=== PATIENT | male | born 1990 | race Caucasian/White ===

== ENCOUNTER 2020-07-02 19:31 | Emergency (ER) | payer BC, SELFPAY ==
--- NOTE | 2020-07-02 19:30 | DI.RAD_ITS ---
EXAM: XR THUMB LT CLINICAL HISTORY: pain at mcp thumb joint after injury. TECHNIQUE: 2D digital imaging was performed. COMPARISON: None. FINDINGS: BONES: No acute fracture is present. No bony destructive lesion is seen. JOINTS: No dislocation present. SOFT TISSUE: Normal. IMPRESSION: No evidence of acute fracture, dislocation, or subluxation. DATA REPOSITORY: RADIATION DOSE DELIVERED:
[2020-07-02 19:38] VITALS: BP 130/78; PULSE 76; RESP 18; TEMP 36.3; O2SAT 98
--- NOTE | 2020-07-02 19:47 | W.ED.GENAD ---
Discharge Plan Disposition Patient Disposition: HOME Condition: Good Discharge Details Clinical Impression: Left thumb sprain Primary Care Provider: None,None ED Provider: Shawn Pace Discharge Instructions Instructions: Finger Sprain (ED) Additional Instructions: At this time your exam does not show evidence of ruptured tendons or ligaments. The x-ray is negative for any evidence of fracture. I suspect you have a notable sprain of the ligaments or in your thumb. Please use the cast/splint for the time being to give additional support over the next few weeks. If you notice any worsening of your symptoms, or any new symptoms such as vomiting, diarrhea, fever, chills, shortness of breath, chest pain, numbness, weakness, or fainting , please return immediately to the emergency department for reevaluation. Please follow up with your primary care provider as soon as possible for reassessment and reevaluation. As always, it was a pleasure participating in your medical care today. Medical Decision Making 30-year-old male with no significant past medical history who presents today for evaluation of left thumb pain. Patient was doing [employer] when the ground seem to give out under his left nondominant hand and his thumb was torqued away from the palmar aspect. He had immediate pain and came to the ER for further evaluation. He denies any numbness or tingling. No other trauma. No other complaints at this time. Pain is made worse with movement. Relieved by nothing. Physical exam demonstrates mild swelling around the thenar eminence, mild tenderness over the MCP joint of the thumb, however there does not appear to be any decrease in strength or ligamentous laxity at all on exam. Suspect strain of the thenar muscles without complete tear. With normal strength normal sensation normal range of motion, I do feel that he is appropriate for discharge. X-ray shows no evidence of acute fracture. Symptoms appearing consistent with skiers thumb/gamekeeper's thumb. Will give a thumb spica for support for the time being. Discussed red flags which return. I have extensively reviewed the treatment plan and discharge instructions with the patient. I have addressed all patient concerns at this time. The patient was made aware of what symptoms to monitor for that would warrant a return to the emergency department. Discussed the plan with the patient, they demonstrate verbal understanding and agreement with our assessment and plan at this time. The documentation in this chart was dictated using Dragon dictation software. Please excuse any dictation errors. FINDINGS: Bones/joints: No acute fracture or dislocation. Soft tissues: Normal. IMPRESSION: No acute fracture or dislocation. Thank you for allowing us to participate in the care of your patient. Dictated and Authenticated by: Ladi Strauss MD 07/02/2020 8:06 PM Eastern Time ([place] & [place]) HPI General Date/Time Provider Initiated Documentation: 07/02/20 19:33. HPI Narrative: 30-year-old male with no significant past medical history who presents today for evaluation of left thumb pain. Patient was doing [employer] when the ground seem to give out under his left nondominant hand and his thumb was torqued away from the palmar aspect. He had immediate pain and came to the ER for further evaluation. He denies any numbness or tingling. No other trauma. No other complaints at this time. Pain is made worse with movement. Relieved by nothing. Related Data Allergies Allergy/AdvReac Type Severity Reaction Status Date / Time cefaclor [From Ceclor] Allergy Unverified 07/02/20 19:45 General Stated Complaint: Orthopedic GONZÁLEZ: 4 Review of Systems All systems reviewed & are unremarkable except as noted in HPI and below [facility]LY [facility] Social History Smoking/Tobacco Use Status: Never Smoking risk assessment performed?: Yes Alcohol Intake: current Alcohol Intake frequency: 0-2 drinks per day Alcohol type: beer Drug use: Never Substance use type: does not use Do you feel safe at home: Yes Do you feel safe in your relationship?: Yes Exam Narrative Exam Narrative: 1.Const: Well-nourished, Well-developed, appearing stated age 2.Eyes: PERRL, no conjunctival injection, and symmetrical lids. 3.ENT: Atraumatic external nose and ears. Moist MM. Neck: Symmetric, trachea midline, No thyromegaly. 4.CVS: +S1/S2, No murmurs or gallops. Peripheral pulses 2+ and equal in all extremities. Brisk capillary refill in all extremities. 5.RESP: Unlabored respiratory effort. Clear to auscultation bilaterally. No wheezes rales or rhonchi 6.GI: Soft, Nontender/Nondistended, No hepatosplenomegaly. No guarding or rebound. 7.MSK: Left hand: Symmetrically palpable radial and ulnar pulses. Capillary refill less than 2 seconds to all digits. Intact sensation to light touch of the radial, median and ulnar nerves demonstrated by testing in the dorsal web space of the thumb, the distal palmar aspect of the index finger, and the lateral surface of the fifth finger. 2 point discrimination intact to 5mm (up to 6mm can be normal in digits 3-5) of discrimination in the affected digit. Intact motor function of the radial, median and ulnar nerves demonstrated by strength of extension of the isolated distal joint of the index finger, hand merchandising execution associate, and spreading of the 2nd through 5th digits. Intact recurrent median nerve as demonstrated by ability to move thumb fully through opposition, abduction and flexion. No snuffbox tenderness. Normal strength for all areas and directions of movement for the thumb. There does not appear to be any ligamentous laxity by the collateral ligaments, the base of the thumb/MCP joint. 8.Skin: Warm, Dry. No rashes or lesions. 9.Neuro: client service coordinator II-XII grossly intact. Sensation grossly intact, no focal neurologic deficits. 10.Psych: (AAO) x3. Appropriate mood and affect Course Vital Signs Vital signs: Vital Signs Temperature 36.3 C L 07/02/20 19:38 Pulse 76 07/02/20 19:38 Respiratory Rate 18 07/02/20 19:38 Blood Pressure 130/78 07/02/20 19:38 Pulse Oximetry 98 07/02/20 19:38 Temperature 36.3 C L 07/02/20 19:38 Temperature Source Temporal Artery Scan 07/02/20 19:38 Pulse 76 07/02/20 19:38 Respiratory Rate 18 07/02/20 19:38 Respiratory Effort Non-Labored 07/02/20 19:40 Blood Pressure 130/78 07/02/20 19:38 Pulse Oximetry 98 07/02/20 19:38 Oxygen Delivery Method Room Air 07/02/20 19:38 Oxygen Flow Rate 0 07/02/20 19:38 Pain Level 6 07/02/20 19:46
--- NOTE | 2020-07-02 20:06 | DI.VRAD_ITS ---
PROCEDURE INFORMATION: Exam: XR Left Finger(s) Exam date and time: 07/02/2020 7:57 PM Age: 30 years old Clinical indication: Other: Pain at mcp thumb joint after injury TECHNIQUE: Imaging protocol: XR Left fingers. Views: Minimum 2 views. COMPARISON: No relevant prior studies available. FINDINGS: Bones/joints: No acute fracture or dislocation. Soft tissues: Normal. IMPRESSION: No acute fracture or dislocation. Dictated and Authenticated by: Ladi Strauss MD. Ordering:REINA Escobar MD
== END 2020-07-02 20:14 | disposition home or self-care (01) ==
PROVIDERS: Emergency Provider Student in an Organized Health Care Education/Training Program
DX: S63.642A Sprain of metacarpophalangeal joint of left thumb, initial encounter (principal); X50.9XXA Other and unspecified overexertion or strenuous movements or postures, initial encounter
CPT/HCPCS: 29125; 99283; 73140